=== PATIENT | female | born 1985 | race Caucasian/White ===

== ENCOUNTER 2016-08-22 02:10 | Emergency (ER) | payer SELFPAY ==
[2016-08-22 02:18] VITALS: RESP 16
[2016-08-22] MEDS ORDERED: IBUPROFEN 600 MG TAB PO ONE (02:19)
[2016-08-22] MEDS ORDERED: ACETAMINOPHEN 500 MG TAB PO ONE (02:19)
--- NOTE | 2016-08-22 02:37 | EDPHY ---
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 She denies neck pain, chest pain, headache. Nausea vomiting. She does tell me her tetanus shot is up-to-date. Past Medical History: No significant medical history Past Surgical History: No significant surgical history Social History: Denies daily use drugs alcohol tobacco products Family History: Noncontributory ROS REVIEW OF SYSTEMS: A comprehensive 10 point review of systems is otherwise negative aside from elements mentioned in the history of present illness. Exam Constitutional triage nursing summary reviewed, vital signs reviewed, awake/ alert. Eyes normal conjunctivae and sclera, EOMI, PERRLA. HENT head/neck: Right eyebrow: There is a vertically oriented 5 cm laceration. Through the eyebrow. Otherwise atraumatic head and neck exam. moist mucus membranes, no epistaxis, neck supple/ no meningismus, no raccoon eyes. Respiratory clear to auscultation bilaterally, normal breath sounds, no respiratory distress, no wheezing. Cardiovascular rate normal, regular rhythm, no murmur, no edema, distal pulses normal. Gastrointestinal soft, non-tender, no rebound, no guarding, normal bowel sounds, no distension, no pulsatile mass. Genitourinary no CVA tenderness. Musculoskeletal no midline vertebral tenderness, full range of motion, no calf swelling, no tenderness of extremities, no meningismus, good pulses, neurovascularly intact. Skin pink, warm, & dry, no rash, skin atraumatic. Neurologic awake, alert and oriented x 3, AAOx3, moves all 4 extremities equally, motor intact, sensory intact, CN II-XII intact, normal cerebellar, normal vision, normal speech. Psychiatric normal mood/affect. Heme/Lymph/Immune no lymphadenopathy. Differential Diagnosis: Includes but is not limited to in a particular order, forehead laceration, closed head injury Medical Decision Making: Plan for this patient patient on the local anesthesia to anesthetize the wound, the wound will need to be copiously clean. And then under sterile conditions will need to be closed. Re-evaluation: Laceration Repair Procedure: Verbal Consent was obtained, Under sterile conditions, The patient had lidocaine with epinephrine used approximately 7ccs to local anesthetize the Left forehead Eyebrow 5cm Laceration. The wound was copiously irrigated with sterile fluid, the wound was explored for foreign bodies there were none visualized, the wound was explored with a sterile glove to the base. There are no deep structures involved, including no arterial injury. TEN interrupted 6.O PROLENE Sutures were placed in this patient's laceration. She had good close approximation of the wound edges. She Tolerated this well. Patient understands to have her sutures removed in 7 days. Keflex antibiotics prophylactic. 1st dose given in emergency room. She tolerated suture repair very well. She understands to return emergency room if she develops any worsening symptoms includes headache, fever, vomiting or questions concerns about her wound. Source: Patient - Personal History LMP (Females 10-55): 1-7 Days Ago Current Tetanus/Diphtheria Vaccine: Yes Current Tetanus Diphtheria and Acellular Pertussis (TDAP): Yes Tetanus Vaccine Date: 2013 - Medical/Surgical History Hx Asthma: No Hx Chronic Respiratory Disease: No Hx Diabetes: No Hx Cardiac Disease: No Hx Renal Disease: No Hx Cirrhosis: No Hx Alcoholism: No Hx HIV/AIDS: No Hx Splenectomy or Spleen Trauma: No Other PMH: no PMH or PSH - Social History Smoking Status: Current some day smoker Constitutional: Initial Vital Signs Temperature (C) 36.6 C 08/22/16 02:14 Heart Rate 100 08/22/16 02:14 Respiratory Rate 16 08/22/16 02:14 Blood Pressure 97/73 L 08/22/16 02:14 O2 Sat (%) 98 08/22/16 02:14 O2 Delivery Mode Room Air Allergies/Adverse Reactions: Penicillins Allergy (Verified 08/22/16 02:13) pectin Allergy (Uncoded 08/22/16 02:13) Home Medications: Medication Instructions Recorded Cephalexin [Keflex (*)] 500 mg PO Q6H #28 cap 08/22/16 [id number] 08/22/16 Departure - Departure Disposition: Home, Routine, Self-Care Clinical Impression: Laceration Condition: Good Instructions: Care For Your Stitches (ED), Laceration (ED) Additional Instructions: 1. Your sutures need to be removed in 7 days. 2. Return emergency room if you have any worsening symptoms questions or concerns. 3. Take antibiotics as prescribed. Referrals: NONE *PRIMARY CARE P,. [Primary Care Provider] - As per Instructions Prescriptions: Cephalexin [Keflex (*)] 500 mg PO Q6H #28 cap
[2016-08-22] MEDS ORDERED: CEPHALEXIN 500 MG CAP PO ONE (03:45)
[2016-08-22] MEDS ORDERED: CEPHALEXIN 500MG PREPACK#4 BTL TAKEHOME ONE (03:45)
[2016-08-22 04:08] VITALS: BP 118/70; PULSE 76; TEMP 98.6; O2SAT 95
== END 2016-08-22 04:09 | disposition home or self-care (01) ==
PROC: 08QNXZZ Repair Right Upper Eyelid, External Approach (ICD-10-PCS; principal; 2016-08-22)
DX: S01.111A Laceration without foreign body of right eyelid and periocular area, initial encounter (principal); F17.200 Nicotine dependence, unspecified, uncomplicated; W22.8XXA Striking against or struck by other objects, initial encounter; Y93.89 Activity, other specified